=== PATIENT | female | born 1975 | race African-American/Black ===

== ENCOUNTER 2018-12-20 11:55 | Emergency (ER) | payer BC | END 2018-12-20 12:45 | disposition home or self-care (01) | LOC: MADERS 11:55 | DX: J11.1 Influenza due to unidentified influenza virus with other respiratory manifestations (principal); I10 Essential (primary) hypertension; F17.210 Nicotine dependence, cigarettes, uncomplicated; Z79.899 Other long term (current) drug therapy | CPT/HCPCS: 99282 ==